=== PATIENT | female | born 1975 | race Caucasian/White ===

== ENCOUNTER 2018-04-22 18:29 | Emergency (ER) | payer BC ==
[~2018-04-22] VITALS: Ht 170.2 cm; Wt 83.9 kg
[2018-04-22] MEDS ORDERED: MOTRIN PO STA (18:44)
[2018-04-22] MEDS ORDERED: MOTRIN ONE (18:47)
--- NOTE | 2018-04-22 18:59 | DIREP ---
PROCEDURE:XRAY ANKLE MIN 3VWS-RT COMPARISON:None. INDICATIONS:Right ankle injury FINDINGS: BONES:Three views of the right ankle. No acute fracture is seen in the medial, lateral or the posterior malleoli us. Small calcaneal spur noted. No fracture of the base of the 5th metatarsal is seen. JOINTS:Normal. SOFT TISSUES:Normal. OTHER:No additional findings. CONCLUSION:Small calcaneal spur, no acute fracture or joint widening seen in the right ankle. Dictated by: Jordan Jimenez MD on 04/22/2018 at 06:58 PM
--- NOTE | 2018-04-22 19:34 | ER.PDOC ---
General Chief Complaint: Extremities Stated Complaint: R ANKLE INJURY Time seen by MD: 18:34 Source: patient Exam Limitations: no limitations History of Present Illness Initial Comments 43 y/o female presents with complaints of right ankle injury after stepping of curb and landing awkwardly. Pt denies other injury, states able to walk with limp on it, denies taking meds for it. Allergies: Coded Allergies: No Known Allergies (Unverified , 04/22/18) Past Medical History Medical History: no pertinent history Surgical History: appendectomy, cholecystectomy, hysterectomy LMP (females 10-50): hysterectomy Social History Smoking: non-smoker Alcohol Use: none Drug Use: none Review of Systems Constitutional: no symptoms reported Eyes: no symptoms reported Ears, Nose, Mouth, Throat: no symptoms reported Respiratory: no symptoms reported Cardiovascular: no symptoms reported Gastrointestinal: no symptoms reported Musculoskeletal: denies back pain, denies muscle pain, denies muscle stiffness , denies neck pain All Other Systems: Reviewed and Negative Physical Exam Comments PHYSICAL EXAM: Vital Signs: please see electronic medical record. General: the patient is pleasant, resting comfortably, no obvious distress. HEENT: Atraumatic, with no gross pupillary abnormalities. Eyes: No injection, no significant icterus, otherwise normal. Neck: Gross observation of the neck is unremarkable. Respiratory: No respiratory distress, CTAB Neuro: The pt is awake. Alert and oriented. Grossly normal neurological exam. Psych: Normal Affect, normal speech. Skin: No laceration. MS: TTP and swelling over the lateral area of the right ankle. Distal CMS wnl. Results/Orders Results/Orders Administered Medications Medications (Trade) Dose Ordered Sig/Jessie Route PRN Reason Start Time Stop Time Status Last Admin Dose Admin Ibuprofen (Motrin) 800 mg STAT STAT PO 04/22/18 18:44 04/22/18 18:45 DC 04/22/18 18:52 Progress Progress Patient presents with likely ankle sprain based on history, physical exam and paucity of definite radiological findings. I did have an in-depth discussion with the patient regarding the sensitivity of x-rays. I explained that only bones can be seen on x-ray and that cartilage, ligaments and tendons cannot be evaluated using x-rays. I did emphasize that just because nothing was found an x-ray tonight does not mean that there is not an occult bony fracture. The patient understands they may be contacted in the future with additional radiological findings. The patient understands that at this time there is no evidence for a more malignant underlying process, but that early in the process of an injury such as this, an initial workup can be falsely reassuring. Routine discharge counseling was given to the patient and the patient understands that worsening, changing or persistent symptoms should prompt an immediate call or follow up with their primary physician or return for reevaluation. The importance of appropriate follow up was also discussed with the patient. More extensive discharge instructions were given in the patients discharge paperwork. Departure Time of Disposition: 19:15 Disposition: 01 HOME, SELF-CARE Impression: Primary Impression: Ankle sprain Condition: Stable Patient Instructions: Ankle Sprain Duration or Time Spent with Pa: 10 JENN SHERIDAN D0 Apr 22, 2018 19:34
[2018-04-22 19:39] VITALS: BP 128/81
== END 2018-04-22 19:37 | disposition home or self-care (01) ==
LOC: ER 18:29
DX: S93.401A Sprain of unspecified ligament of right ankle, initial encounter (principal); Z90.49 Acquired absence of other specified parts of digestive tract; Z90.710 Acquired absence of both cervix and uterus; W10.1XXA Fall (on)(from) sidewalk curb, initial encounter; Y93.89 Activity, other specified; Y92.89 Other specified places as the place of occurrence of the external cause; Y99.8 Other external cause status
CPT/HCPCS: 99284; 73610-RT